=== PATIENT | male | born 1965 | race Caucasian/White ===

== ENCOUNTER 2017-04-03 09:33 | Emergency (ER) | payer BC ==
--- NOTE | 2017-04-03 09:54 | EDM.PDOC ---
ED HPI GENERAL MEDICAL PROBLEM - General Chief Complaint: General Stated Complaint: [id number] INFECTION Time Seen by Provider: 04/03/17 09:53 Source of Information: Reports: Patient, Family, RN, RN Notes Reviewed History Limitations: Reports: No Limitations - History of Present Illness INITIAL COMMENTS - FREE TEXT/NARRATIVE: Arrives from home by POV with c/o dental abscess with right facial swelling. Pt first noticed the facial swelling when he woke up this morning, and since then it has significantly increased. Onset of right molar area toothache on/off this last week. Yesterday the pain increased, and has become constant. Pt reports occasional foul tasting drainage from the affect tooth (right upper molar). Pt states the pain is moderate, and that when he looks at how much swelling there is he is surprised that it doesn't hurt a lot more. Denies fever or chills. Onset: Gradual Duration: Constant, Getting Worse Location: Reports: Face (mouth) Quality: Reports: Ache, Throbbing Severity: Moderate Improves with: Reports: None Worsens with: Reports: Eating (chewing, and palpation) Associated Symptoms: Reports: No Other Symptoms - Related Data Allergies Allergy/AdvReac Type Severity Reaction Status Date / Time No Known Allergies Allergy Verified 04/03/17 09:51 Home Meds: Home Meds . [No Known Home Meds] 04/03/17 [History] Past Medical History - Past Health History Medical/Surgical History: Denies Medical/Surgical History Social & Family History - Family History Cardiac: Reports: CAD, Hypertension Neurological: Reports: CVA (father) - Alcohol Use Alcohol Use History: No - Recreational Drug Use Recreational Drug Use: No - Living Situation & Occupation Living situation: Reports: with Family Occupation: Employed ED ROS GENERAL - Review of Systems Review Of Systems: ROS reveals no pertinent complaints other than HPI. ED EXAM, GENERAL - Physical Exam Exam: See Below Exam Limited By: No Limitations General Appearance: Alert, WD/WN, No Apparent Distress Eye Exam: Bilateral Eye: EOMI, Normal Inspection, PERRL Ears: Normal External Exam, Normal Canal, Hearing Grossly Normal, Normal TMs Nose: Normal Inspection, Normal Mucosa, No Blood Throat/Mouth: Normal Lips, Normal Oropharynx, Normal Voice, No Airway Compromise , Other (right maxillary molar w/caries and gum abscess w/non-flucutant swelling , erythema, and tenderness with significant Rt maxillary facial swelling w/out erythema of the skin, no periorbital involvement) Head: Atraumatic, Facial Swelling, Facial Tenderness Neck: Normal Inspection, Supple, Non-Tender, Full Range of Motion. No: Lymphadenopathy (L), Lymphadenopathy (R) Respiratory/Chest: No Respiratory Distress Cardiovascular: Regular Rate, Rhythm Neurological: Alert, Oriented, CN II-XII Intact, Normal Cognition, Normal Gait, No Motor/Sensory Deficits Psychiatric: Normal Affect, Normal Mood Course - Vital Signs Last Recorded V/S: Last Vital Signs Temp 37.0 C 04/03/17 09:54 Pulse 83 04/03/17 09:54 Resp 18 04/03/17 09:54 BP 131/79 04/03/17 09:54 Pulse Ox 97 04/03/17 09:54 - Orders/Labs/Meds Orders: Active Orders 24 hr Category Date Time Status Peripheral IV Care [RC] . DIRECTED Care 04/03/17 10:01 Active Piperacillin/Tazobactam [Zosyn] 3.375 gm Med 04/03/17 10:01 Active Sodium Chloride 0.9% [Normal Saline] 100 ml IV ONETIME Sodium Chloride 0.9% [Saline Flush] Med 04/03/17 10:01 Active 10 ml FLUSH ASDIRECTED PRN Vancomycin 1,200 mg Med 04/03/17 10:03 Active Sodium Chloride 0.9% [Normal Saline] 100 ml IV ONETIME Peripheral IV Insertion Adult [OM.PC] Stat Oth 04/03/17 09:59 Ordered Medication Orders Piperacillin Sod/Tazobactam (Sod 3.375 gm/ Sodium Chloride) 100 mls @ 200 mls/ hr IV ONETIME ONE Stop: 04/03/17 10:30 Vancomycin HCl 1,200 mg/ (Sodium Chloride) 100 mls @ 100 mls/hr IV ONETIME ONE Stop: 04/03/17 11:02 Sodium Chloride (Saline Flush) 10 ml FLUSH ASDIRECTED PRN PRN Reason: Keep Vein Open Meds: Medications Generic Name Dose Route Start Last Admin Trade Name Freq PRN Reason Stop Dose Admin Piperacillin Sod/Tazobactam 100 mls @ 200 mls/hr 04/03/17 10:01 Sod 3.375 gm/ Sodium Chloride IV 04/03/17 10:30 ONETIME ONE Vancomycin HCl 1,200 mg/ 100 mls @ 100 mls/hr 04/03/17 10:03 Sodium Chloride IV 04/03/17 11:02 ONETIME ONE Sodium Chloride 10 ml 04/03/17 10:01 Saline Flush FLUSH ASDIRECTED PRN Keep Vein Open Discontinued Medications Generic Name Dose Route Start Last Admin Trade Name Freq PRN Reason Stop Dose Admin Dexamethasone 20 mg 04/03/17 10:02 Dexamethasone IVPUSH 04/03/17 10:03 ONETIME ONE Diphenhydramine HCl 25 mg 04/03/17 10:02 Benadryl IVPUSH 04/03/17 10:03 ONETIME ONE Departure - Departure Time of Disposition: 11:50 Disposition: Home, Self-Care 01 Condition: Good Clinical Impression: Dental abscess - Discharge Information Instructions: Dental Abscess Forms: ED Department Discharge Additional Instructions: Rx: Flagyl 500mg Rx: Augmentin 875mg Follow up with dentist April 05. Return to ER if worse at any time. - My Orders Last 24 Hours: My Active Orders 04/03/17 09:59 Peripheral IV Insertion Adult [OM.PC] Stat 04/03/17 10:01 Peripheral IV Care [RC] . DIRECTED Piperacillin/Tazobactam [Zosyn] 3.375 gm Sodium Chloride 0.9% [Normal Saline] 100 ml IV ONETIME Sodium Chloride 0.9% [Saline Flush] 10 ml FLUSH ASDIRECTED PRN 04/03/17 10:03 Vancomycin 1,200 mg Sodium Chloride 0.9% [Normal Saline] 100 ml IV ONETIME - Assessment/Plan Last 24 Hours: My Active Orders 04/03/17 09:59 Peripheral IV Insertion Adult [OM.PC] Stat 04/03/17 10:01 Peripheral IV Care [RC] . DIRECTED Piperacillin/Tazobactam [Zosyn] 3.375 gm Sodium Chloride 0.9% [Normal Saline] 100 ml IV ONETIME Sodium Chloride 0.9% [Saline Flush] 10 ml FLUSH ASDIRECTED PRN 04/03/17 10:03 Vancomycin 1,200 mg Sodium Chloride 0.9% [Normal Saline] 100 ml IV ONETIME
[2017-04-03] MEDS ORDERED: Sodium Chloride 0.9% 10 ML Syringe FLUSH PRN (10:01)
[2017-04-03] MEDS ORDERED: Piperacillin/Tazobactam 3.375 GM in Sodium Chloride 0.9% 100 ML IV ONE (10:01)
[2017-04-03] MEDS ORDERED: Dexamethasone 4 MG/ML SDV IVPUSH ONE (10:02)
[2017-04-03] MEDS ORDERED: diphenhydrAMINE 50 MG/ML SDV IVPUSH ONE (10:02)
[2017-04-03] MEDS ORDERED: SODIUM CHLORIDE 0.9% IV ONE (10:03)
[2017-04-03] MEDS ORDERED: VANCOMYCIN IV ONE (10:03)
== END 2017-04-03 12:00 | disposition home or self-care (01) ==
LOC: DL.ED 09:33
DX: K04.7 Periapical abscess without sinus (principal)
CPT/HCPCS: 96365; 96367; 96375; 99282; J1100; J1200; J2543; J3370; J7050

== ENCOUNTER 2024-11-11 17:33 | Emergency (ER) | payer BC | END 2024-11-11 18:26 | disposition home or self-care (01) | LOC: DL.ED 17:33 | DX: S63.283A Dislocation of proximal interphalangeal joint of left middle finger, initial encounter (principal); V80.010A Animal-rider injured by fall from or being thrown from horse in noncollision accident, initial encounter | CPT/HCPCS: 26770; 73140; 99283; J2003 ==